=== PATIENT | female | born 1940 | race Caucasian/White ===

== ENCOUNTER 2017-08-04 12:36 | Observation (INO) ==
[2017-08-04 13:59] LABS: Basophils # 0.1 10*3/uL (0.0-0.2); Basophils % 0.6 % (0.0-0.8); Eosinophils # 0.3 10*3/uL (0.0-0.87); Eosinophils % 2.7 % (0.00-10.9); Hematocrit 31.3 VOL% (35.7-47.0); Hemoglobin 9.7 GM/DL (12.0-16.0); Immature Granulocytes Absolute 0.09 #; Lymphocytes # 3.4 10*3/uL (1.4-4.0); Lymphocytes % 36.8 % (21.3-54.2); Mean Corpuscular Hemoglobin 32 PG (27-34); Mean Corpuscular Volume 104.3 FL (87-102); Mean Platelet Volume 11.6 FL (9.6-12.0); Monocytes # 1.3 10*3/uL (0.11-0.8); Monocytes % 13.6 % (1.7-12.7); NRBC # 0.02 10*3/uL; Neutrophils # 4.2 10*3/uL (1.4-7.4); Neutrophils % 45.3 % (38.7-73.9); Platelet Count 251 T/CUMM (130-400); Red Cell Distribution Width 16.6 % (9.3-17.3); White Blood Count 9.3 T/CUMM (4-12)
[2017-08-04 14:15] LABS: Alanine Aminotransferase 23 U/L (13-56); Albumin 3.2 G/DL (3.4-5.0); Alkaline Phosphatase 98 U/L (45-117); Aspartate Amino Transferase 28 U/L (0-37); Blood Urea Nitrogen 32 MG/DL (7-18); Calcium 8.8 MG/DL (8.5-10.1); Glucose 141 MG/DL (74-106); PT Patient Result 10.5 SECS; Partial Thromboplastin Time 22.1 SECS (0-40); Potassium 3.9 MMOL/L (3.5-5.1); Sodium 136 MMOL/L (136-145); Total Protein 6.9 G/DL (6.4-8.3); Troponin I Only < 0.015 NG/ML (0.00-0.045)
[2017-08-04] MEDS ORDERED: LEVOFLOXACIN INJ 750 MG in PREMIX 1 EACH IV STA (16:09)
[2017-08-04] MEDS ORDERED: LEVOFLOXACIN INJ 150 ML IV ONE (16:49)
[2017-08-04] MEDS ORDERED: guaiFENesin 200 MG/10 ML UDCUP PO PRN (18:19)
[2017-08-04] MEDS ORDERED: ALBUTEROL/IPRATROPIUM 3 ML NEB RESP TX SCH (18:19)
[2017-08-04] MEDS ORDERED: ONDANSETRON 4 MG/2 ML VIAL IV PRN (18:19)
[2017-08-04] MEDS ORDERED: MYLANTA/LIDO VISC 2:1 300 ML BOTTLE SWISH/SPIT PRN (18:19)
[2017-08-04] MEDS ORDERED: MAGNESIUM HYDROXIDE SUSP 30 ML UDCUP PO PRN (18:19)
[2017-08-04] MEDS ORDERED: ACETAMINOPHEN 325 MG TABLET PO PRN (18:19)
[2017-08-04] MEDS ORDERED: MYLANTA/LIDO VISC 2:1 300 ML BOTTLE SWISH/SWAL PRN (18:19)
[2017-08-04] MEDS ORDERED: diphenhydrAMINE CAP 25 MG CAPSULE PO PRN (18:19)
[2017-08-04] MEDS ORDERED: ALPRAZolam 0.25 MG TABLET PO PRN (18:19)
[2017-08-04] MEDS ORDERED: traMADol 50 MG TABLET PO PRN (18:19)
[2017-08-04] MEDS ORDERED: ALUMINUM/MAGNES/SIMETH MAX STR 30 ML UDCUP PO PRN (18:19)
[2017-08-04] MEDS ORDERED: BENZTROPINE 2 MG/2 ML AMP IV PRN (18:19)
[2017-08-04] MEDS ORDERED: LACTULOSE 20 GM/30 ML UDCUP PO PRN (18:19)
[2017-08-04] MEDS ORDERED: LOPERAMIDE 2 MG CAPSULE PO PRN ×2 (18:19)
[2017-08-04] MEDS ORDERED: TEMAZEPAM 7.5 MG CAPSULE PO PRN (18:19)
[2017-08-04] MEDS ORDERED: PROMETHAZINE INJ 25 MG in SODIUM CHLORIDE 0.9% 50 ML IV PRN (18:19)
[2017-08-04] MEDS: SODIUM CHLORIDE 0.9% 1,000 ML IV SCH (18:54)
[2017-08-04] MEDS ORDERED: FEXOFENADINE 180 MG TABLET PO PRN (19:01)
[2017-08-04] MEDS ORDERED: FLUTICASONE 50 MCG NASAL SPRAY 16 GM BOTTLE BOTH NARES PRN (19:01)
[2017-08-04] MEDS ORDERED: metFORMIN 500 MG TABLET PO SCH (19:30)
[2017-08-04] MEDS: ASPIRIN EC 81 MG TABLET PO SCH (20:26)
[2017-08-04] MEDS: PROPRANOLOL 20 MG TABLET PO SCH (20:26)
[2017-08-04] MEDS: EZETIMIBE/SIMVASTATIN 10-40 MG TABLET PO SCH (20:26)
[2017-08-05] MEDS: ALBUTEROL/IPRATROPIUM 3 ML NEB RESP TX SCH ×2 (00:52→06:54)
[2017-08-05] MEDS: SODIUM CHLORIDE 0.9% 1,000 ML IV SCH ×3 (02:54→13:26)
[2017-08-05 05:10] LABS: Basophils % 0.3 % (0.0-0.8); Eosinophils # 0.2 10*3/uL (0.0-0.87); Eosinophils % 2.9 % (0.00-10.9); Hematocrit 27.6 VOL% (35.7-47.0); Hemoglobin 8.8 GM/DL (12.0-16.0); Immature Granulocytes % 0.6 %; Immature Granulocytes Absolute 0.04 #; Lymphocytes % 31.9 % (21.3-54.2); Mean Corpuscular HGB Conc 31.9 GM/DL (32-36); Mean Corpuscular Hemoglobin 32 PG (27-34); Mean Corpuscular Volume 101.5 FL (87-102); Mean Platelet Volume 11.4 FL (9.6-12.0); Monocytes % 16.6 % (1.7-12.7); Neutrophils % 47.7 % (38.7-73.9); Platelet Count 205 T/CUMM (130-400); Red Blood Count 2.72 MC/CUMM (3.8-5.5); Red Cell Distribution Width 16.5 % (9.3-17.3); White Blood Count 6.2 T/CUMM (4-12)
[2017-08-05] MEDS: LEVOTHYROXINE 112 MCG TABLET PO SCH (06:09)
[2017-08-05 06:21] LABS: Anisocytosis 1+; Band Neutrophils 6 % (0-10); Eosinophils 1 % (0-10); Hypochromasia 1+; Lymphocytes 37 % (20-55); Metamyelocytes 1 %; Myelocytes 3 %; Ovalocytes 1+; Platelet Estimate Normal; Segmented Neutrophils 49 % (50-85); Total Cells Counted 100
[2017-08-05 07:17] LABS: Apearance,Urine CLEAR (Clear); Bilirubin,Urine Negative (Negative); Blood, Urine Negative (Negative); Glucose,Urine (UA) Negative (Negative); Ketones,Urine Negative (Negative); Nitrite,Urine Negative (Negative); Protein,Urine Negative; RBC,Urine 1 /HPF (0-4); Squamous Epithelial Cell,Urine Occasional /HPF (0-10); Urine Color Straw (Yellow); Urine Specific Gravity 1.008 (1.001-1.035); Urine Urobilinogen < 2.0 EU/DL (0.2-1.0); WBC,Urine 4 /HPF (0-6)
[2017-08-05] MEDS: ASPIRIN EC 81 MG TABLET PO SCH (08:09)
[2017-08-05] MEDS: TELMISARTAN 40 MG TABLET PO SCH (08:10)
[2017-08-05] MEDS: metFORMIN 500 MG TABLET PO SCH (08:10)
[2017-08-05] MEDS: PROPRANOLOL 20 MG TABLET PO SCH ×2 (08:10→20:27)
[2017-08-05] MEDS: MAGNESIUM OXIDE 400 MG TABLET PO SCH (08:11)
[2017-08-05] MEDS ORDERED: LEVOFLOXACIN INJ 750 MG in PREMIX 1 EACH IV SCH ×2 (09:00→12:00)
[2017-08-05] MEDS: EZETIMIBE/SIMVASTATIN 10-40 MG TABLET PO SCH (20:27)
[2017-08-06 04:30] LABS: Basophils % 0.7 % (0.0-0.8); Eosinophils # 0.2 10*3/uL (0.0-0.87); Eosinophils % 3.1 % (0.00-10.9); Hematocrit 26.7 VOL% (35.7-47.0); Hemoglobin 8.5 GM/DL (12.0-16.0); Immature Granulocytes % 0.7 %; Immature Granulocytes Absolute 0.04 #; Lymphocytes # 2.1 10*3/uL (1.4-4.0); Lymphocytes % 36.7 % (21.3-54.2); Mean Corpuscular HGB Conc 31.8 GM/DL (32-36); Mean Corpuscular Hemoglobin 33 PG (27-34); Mean Corpuscular Volume 102.3 FL (87-102); Mean Platelet Volume 11.5 FL (9.6-12.0); Monocytes # 1.1 10*3/uL (0.11-0.8); Monocytes % 19.1 % (1.7-12.7); Neutrophils # 2.3 10*3/uL (1.4-7.4); Neutrophils % 39.7 % (38.7-73.9); Platelet Count 217 T/CUMM (130-400); Red Blood Count 2.61 MC/CUMM (3.8-5.5); Red Cell Distribution Width 16.3 % (9.3-17.3); White Blood Count 5.8 T/CUMM (4-12)
[2017-08-06 05:16] LABS: Atypical Lymphocytes Few; Band Neutrophils 4 % (0-10); Giant Platelets Few; Lymphocytes 38 % (20-55); Platelet Estimate Normal; Segmented Neutrophils 45 % (50-85); Total Cells Counted 100
[2017-08-06] MEDS: LEVOTHYROXINE 112 MCG TABLET PO SCH (06:26)
[2017-08-06] MEDS: metFORMIN 500 MG TABLET PO SCH (08:39)
[2017-08-06] MEDS: PROPRANOLOL 20 MG TABLET PO SCH (08:39)
[2017-08-06] MEDS: TELMISARTAN 40 MG TABLET PO SCH (08:39)
[2017-08-06] MEDS: MAGNESIUM OXIDE 400 MG TABLET PO SCH (08:40)
[2017-08-06] MEDS: ASPIRIN EC 81 MG TABLET PO SCH (08:40)
[2017-08-06] MEDS ORDERED: LEVOFLOXACIN INJ 750 MG in PREMIX 1 EACH IV ONE (11:44)
[2017-08-06] MEDS: SODIUM CHLORIDE 0.9% 1,000 ML IV SCH (12:14)
[2017-08-06] MEDS ORDERED: HEPARIN LOCK FLUSH 500 UNIT/5 ML SYRINGE IV PRN (12:14)
[2017-08-06 13:01] VITALS: BP 154/67
== END 2017-08-06 14:10 | disposition home or self-care (01) ==
LOC: N.ED 12:36 → N.EDINP 12:36 → N.4E 16:50
PROVIDERS: ADMIT Specialist; ATTEND Specialist